=== PATIENT | female | born 1955 | race Caucasian/White ===

== ENCOUNTER → 2019-10-11 10:09 | Outpatient (CLI) | payer MEDICARE, SELFPAY ==
--- NOTE | ~2019-10-11 | DEXA_ITS ---
Bone Density Report Name: Latha Thompson Age: 64 Sex: Female Ethnicity: White Date of : 1955 Indication: postmenopausal osteoporosis; monitoring treatment; Referring Provider: Samantha, Kisha Study: Bone densitometry was performed. Exam Date: October 11, 2019 Accession number: [id number] Bone Density: Region BMD T-score Z-score Classification AP Spine (L1-L4) 0.863 -1.7 0.2 Osteopenia Femoral Neck (Left) 0.584 -2.4 -0.8 Osteopenia Total Hip (Left) 0.625 -2.6 -1.3 Osteoporosis Femoral Neck (Right) 0.593 -2.3 -0.7 Osteopenia Total Hip (Right) 0.660 -2.3 -1.0 Osteopenia Total Hip Mean 0.643 -2.5 -1.2 Osteopenia World Health Organization criteria for BMD impression classify patients as: Normal (T-score at or above -1.0), Osteopenia (T-score between -1.0 and -2.5), or Osteoporosis (T-score at or below -2.5). 10-year Fracture Risk: FRAX not reported because: Some T-score for Spine Total or Hip Total or Femoral Neck at or below -2.5 Treated for osteoporosis Previous Exams: Region Exam Age BMD T-score BMD Change BMD Change Date g/cm2 vs Baseline vs Previous AP Spine(L1-L4) 10/11/2019 64 0.863 -1.7 -0.007 -0.029* 10/07/2017 62 0.893 -1.4 0.022 0.022 10/06/2015 60 0.870 -1.6 Total Hip(Left) 10/11/2019 64 0.625 -2.6 -0.006 0.007 10/07/2017 62 0.618 -2.7 -0.013 -0.013 10/06/2015 60 0.631 -2.5 Total Hip(Right) 10/11/2019 64 0.660 -2.3 -0.029* 0.005 10/07/2017 62 0.655 -2.3 -0.034* -0.034* 10/06/2015 60 0.689 -2.1 *Denotes significance at 95% confidence level, LSC for AP Spine = 0.022 g/cm2, LSC for Total Hip = 0.027 g/cm2 Clinical Information Provided by Patient: Is being treated for osteoporosis Has used the following medications: Fosamax (i.e. alendronate), Vitamin D, Calcium Patient maximum height was 62 Menopause Age: 47 No regular weight bearing exercise Does not regularly consume dairy products Drinks caffeinated beverages Onset of menses at age 10 Number of children 2 Impression: The patient has osteoporosis, based on the Left Total Hip T-score. The BMD for the AP Spine(L1-L4) decreased, changing by -0.029 since the last DXA exam. Discussion: SIGNIFICANT BONE LOSS OBSERVED. Adherence to therapy (including calcium and vitamin D intake) should be assessed. If compliance is not a factor, review man
== END ==
PROVIDERS: Visit Provider Family Medicine
DX: Z78.0 Asymptomatic menopausal state (principal); M85.88 Other specified disorders of bone density and structure, other site; M85.852 Other specified disorders of bone density and structure, left thigh; M85.851 Other specified disorders of bone density and structure, right thigh; M81.0 Age-related osteoporosis without current pathological fracture
CPT/HCPCS: 77080